=== PATIENT | male | born 1940 | race Caucasian/White ===

== ENCOUNTER 2019-06-19 10:54 | Emergency (ER) | payer BC ==
[~2019-06-19] VITALS: Ht 162.6 cm; Wt 102.6 kg
[~2019-06-19 10:54] MED LIST: ALBU8.5H8 INH; ASCO500C7 PO; ASPI-903 PO; ATEN50TA PO; AZIT250T PO; BENA20TA4 PO; BENA40TA56 ORAL; CHOL100062 PO; DOCU-159 PO; FINA5TAB4 PO; FURO40TA4 PO; GLIP10TA14 PO; GLUC100015 PO; HYDR-3980 PO; HYDR12.58 PO; IBUP-1542 PO; METF-849 ORAL; MULTI PO; NALO4SPR NS; ONDA4TAB14 PO; PANT40TA3 PO; PRED20TA PO; RANI150T5 PO; SIMV20TA PO; TADA5TAB2 PO; TAMS-14 PO
[2019-06-19 11:01] VITALS: Ht 162.6 cm; Wt 102.6 kg
[2019-06-19] MEDS ORDERED: ONDANSETRON 4 MG INJ IV STA (11:15)
[2019-06-19] MEDS ORDERED: SOD CHLORIDE 0.9% 1,000 ML IV STA (11:15)
[2019-06-19] MEDS ORDERED: KETOROLAC 30 MG INJ IV STA (11:15)
[2019-06-19] MEDS ORDERED: morphine 4 MG/ML VIAL IV STA (11:15)
[2019-06-19 14:08] VITALS: BP 144/61; PULSE 60; RESP 20
== END 2019-06-19 14:21 | disposition home or self-care (01) ==
LOC: E/R 10:54
DX: R10.9 Unspecified abdominal pain (principal); I10 Essential (primary) hypertension; Z79.82 Long term (current) use of aspirin; Z79.84 Long term (current) use of oral hypoglycemic drugs
CPT/HCPCS: 36415; 74176; 80053; 81001; 83690; 85025; 96374; 96375; 99285; J1885; J2270; J2405; J7030; 81003